=== PATIENT | female | born 1960 | race Caucasian/White ===

== ENCOUNTER 2023-03-28 16:35 | Emergency (ER) | payer SELFPAY ==
--- OUTSIDE RECORDS SUMMARY | 2023-03-28 16:37 | XMS REPORT | Continuity of Care Document ---
:1960 Author Organization [facility] t Address [address] [place] [address] [place] [id number] Care Team Providers Name Role Phone Unavailable Unavailable Unavailable Problems This patient has no known problems. Allergies, Adverse Reactions, Alerts This patient has no known allergies or adverse reactions. Medications This patient has no known medications. Procedures This patient has no known procedures. Encounters Start End Encounter Admission Attending Care Care Encounter Source Date/Time Date/Time Type Type Clinicians Facility Department ID 2022-12-25 2022-12-25 Outpatient [facility] Xintu Shuju [id number] Luke 16:38:26 16:38:26 [id number] F Raciel 2022-09-01 2022-09-01 Outpatient [facility] [id number] Luke 08:29:19 08:29:19 [id number] F Raciel Results This patient has no known results.
[2023-03-28 17:27] LABS: Specific Gravity 1.008 (1.005-1.030); Urine Bacteria 20-50 /HPF (<20); Urine Bilirubin NEGATIVE (Negative); Urine Blood 2+ (Negative); Urine Clarity Turbid (Clear); Urine Color Colorless (Yellow); Urine Glucose NEGATIVE (Negative); Urine Protein TRACE (Negative); Urine RBC 21-50 /HPF (None Seen); Urine Urobilinogen Normal (Normal)
--- NOTE | 2023-03-28 17:37 | ER ---
Nurse's Notes [facility] Name: Suzan Antonio Age: 62 yrs Sex: Female : 1960 Arrival Date: 03/28/2023 Time: 16:35 Bed 9 Private MD: Diagnosis: UTI/ Urinary tract infection, site not specified Presentation: 03/28 16:53 Chief complaint: Patient states: burning upon urination x 5 days with pressure, vg1 frequency, and urgency. States has been taking AZO for five days as well. Coronavirus screen: Vaccine status: Patient reports being unvaccinated. Client denies travel out of the [place] in the last 14 days. Ebola Screen: Patient negative for fever greater than or equal to 101.5 degrees Fahrenheit, and additional compatible Ebola Virus Disease symptoms Patient denies exposure to infectious person. Patient denies travel to an Ebola-affected area in the 21 days before illness onset. Initial Sepsis Screen: Does the patient meet any 2 criteria? No. Patient's initial sepsis screen is negative. Does the patient have a suspected source of infection? No. Patient's initial sepsis screen is negative. Risk Assessment: Do you want to hurt yourself or someone else? Patient reports no desire to harm self or others. Onset of symptoms was March 23, 2023. 16:53 Method Of Arrival: Ambulatory vg1 16:53 Acuity: BETTIE 3 vg1 Triage Assessment: 16:55 General: Appears comfortable, Behavior is calm. Pain: Complains of pain in groin Pain vg1 currently is 0 out of 10 on a pain scale. : Reports burning with urination, urgency, urinary frequency. Historical: - Allergies: 16:55 No Known Allergies; vg1 - Home Meds: 16:55 Vitamins [Active]; vg1 - PMHx: 16:55 None; vg1 - PSHx: 16:55 Tonsillectomy; vg1 - Immunization history:: Client reports having NOT received the Covid vaccine. - Social history:: Smoking status: Patient reports the use of cigarette tobacco products, 4/week. Screenin:00 [facility] ED Fall Risk Assessment (Adult) History of falling in the last 3 months, nj1 including since admission No falls in past 3 months (0 pts) Confusion or Disorientation No (0 pts) Intoxicated or Sedated No (0 pts) Impaired Gait No (0 pts) Mobility Assist Device Used No (0 pt) Altered Elimination No (0 pt) Score/Fall Risk Level 0 - 2 = Low Risk Oriented to surroundings, Maintained a safe environment, Hourly rounding (assess needs \T\ fall precautionary measures) done. 17:00 Abuse screen: Denies threats or abuse. Denies injuries from another. Nutritional nj1 screening: No deficits noted. Tuberculosis screening: No symptoms or risk factors identified. Assessment: 17:00 Reassessment: Patient appears in no apparent distress at this time. Patient is alert, nj1 oriented x 3, equal unlabored respirations, skin warm/dry/pink. General: Appears comfortable, Behavior is calm, cooperative, appropriate for age. : Reports burning with urination, since 6 days ago pain with urination. Vital Signs: 16:53 BP 124 / 88; Pulse 88; Resp 16; Temp 98.6(O); Pulse Ox 100% on R/A; Weight 61.23 kg; vg1 Height 5 ft. 6 in. ; 18:18 BP 137 / 89; Pulse 75; Resp 16; Pulse Ox 100% ; nj1 16:53 Body Mass Index 21.79 (61.23 kg, 167.64 cm) vg1 ED Course: 16:37 Patient arrived in ED. rg4 16:55 Natividad Coates F[facility]-C [facility]. snw 16:55 Primitivo Palma MD is Attending Physician. snw 16:55 Triage completed. vg1 16:55 Arm band placed on. vg1 16:58 Kristen Bledsoe, RN is Primary Nurse. nj1 17:00 Patient has correct armband on for positive identification. Bed in low position. Call [facility] light in reach. 18:18 No provider procedures requiring assistance completed. Patient did not have IV access nj during this emergency room visit. Administered Medications: 18:10 Drug: Rocephin (cefTRIAXone) IM 1 grams Route: IM; Site: right gluteus; nj1 18:20 Follow up: Response: No adverse reaction jl7 Medication: 18:18 VIS not applicable for this client. nj1 Outcome: 17:36 Discharge ordered by . snw 18:18 Discharged to home ambulatory. nj1 18:18 Condition: stable 18:18 Discharge instructions given to patient, Instructed on discharge instructions, follow up and referral plans. medication usage, Demonstrated understanding of instructions, follow-up care, medications, Prescriptions given X 1. 18:52 Patient left the ED. jl7 Signatures: Natividad Coates FNP-C FNP-Heide Ryan4 Lori Green RN RN jl7 Erika Paulino RN RN vg1 Kristen Bledsoe RN RN nj1 Corrections: (The following items were deleted from the chart) 16:56 16:55 PSHx: None; vg1 vg1
--- NOTE | 2023-03-28 17:37 | EDPHYS ---
Physician Documentation [facility] Name: Suzan Antonio Age: 62 yrs Sex: Female : 1960 Arrival Date: 03/28/2023 Time: 16:35 Bed 9 Private MD: ED Physician Primitivo Palma HPI: 03/28 22:05 This 62 yrs old Female presents to ER via Ambulatory with complaints of Urinary Problem.snw 22:05 The patient presents with urinary symptoms, dysuria, frequency, urgency. Onset: The snw symptoms/episode began/occurred suddenly, 6 day(s) ago, and became worse today, and became persistent. Associated signs and symptoms: Pertinent positives: cramping, dysuria, Pertinent negatives: constipation, dyspareunia, fever. Severity of symptoms: At their worst the symptoms were moderate, severe. It is unknown whether or not the patient has had similar symptoms in the past. The patient has not recently seen a physician. Historical: - Allergies: 16:55 No Known Allergies; vg1 - Home Meds: 16:55 Vitamins [Active]; vg1 - PMHx: 16:55 None; vg1 - PSHx: 16:55 Tonsillectomy; vg1 - Immunization history:: Client reports having NOT received the Covid vaccine. - Social history:: Smoking status: Patient reports the use of cigarette tobacco products, 4/week. ROS: 22:04 Constitutional: Negative for fever, chills, and weight loss, Eyes: Negative for injury, snw pain, redness, and discharge, ENT: Negative for injury, pain, and discharge, Neck: Negative for injury, pain, and swelling, Cardiovascular: Negative for chest pain, palpitations, and edema, Respiratory: Negative for shortness of breath, cough, wheezing, and pleuritic chest pain, Abdomen/GI: Negative for abdominal pain, nausea, vomiting, diarrhea, and constipation, Back: Negative for injury and pain, MS/Extremity: Negative for injury and deformity, Skin: Negative for injury, rash, and discoloration, Neuro: Negative for headache, weakness, numbness, tingling, and seizure, Psych: Negative for depression, anxiety, suicide ideation, homicidal ideation, and hallucinations. 22:04 : Positive for urinary symptoms, urinary frequency, burning with urination. Exam: 22:04 Constitutional: This is a well developed, well nourished patient who is awake, alert, snw and in no acute distress. Head/Face: Normocephalic, atraumatic. Eyes: Pupils equal round and reactive to light, extra-ocular motions intact. Lids and lashes normal. Conjunctiva and sclera are non-icteric and not injected. Cornea within normal limits. Periorbital areas with no swelling, redness, or edema. ENT: Nares patent. No nasal discharge, no septal abnormalities noted. Tympanic membranes are normal and external auditory canals are clear. Oropharynx with no redness, swelling, or masses, exudates, or evidence of obstruction, uvula midline. Mucous membranes moist. Neck: Trachea midline, no thyromegaly or masses palpated, and no cervical lymphadenopathy. Supple, full range of motion without nuchal rigidity, or vertebral point tenderness. No Meningismus. Chest/axilla: Normal chest wall appearance and motion. Nontender with no deformity. No lesions are appreciated. Cardiovascular: Regular rate and rhythm with a normal S1 and S2. No gallops, murmurs, or rubs. Normal PMI, no JVD. No pulse deficits. Respiratory: Lungs have equal breath sounds bilaterally, clear to auscultation and percussion. No rales, rhonchi or wheezes noted. No increased work of breathing, no retractions or nasal flaring. Abdomen/GI: Soft, non-tender, with normal bowel sounds. No distension or tympany. No guarding or rebound. No evidence of tenderness throughout. Back: No spinal tenderness. No costovertebral tenderness. Full range of motion. Skin: Warm, dry with normal turgor. Normal color with no rashes, no lesions, and no evidence of cellulitis. MS/ Extremity: Pulses equal, no cyanosis. Neurovascular intact. Full, normal range of motion. Neuro: Awake and alert, GCS 15, oriented to person, place, time, and situation. Cranial nerves II-XII grossly intact. Motor strength 5/5 in all extremities. Sensory grossly intact. Cerebellar exam normal. Normal gait. Psych: Awake, alert, with orientation to person, place and time. Behavior, mood, and affect are within normal limits. Vital Signs: 16:53 BP 124 / 88; Pulse 88; Resp 16; Temp 98.6(O); Pulse Ox 100% on R/A; Weight 61.23 kg; vg1 Height 5 ft. 6 in. ; 18:18 BP 137 / 89; Pulse 75; Resp 16; Pulse Ox 100% ; nj1 16:53 Body Mass Index 21.79 (61.23 kg, 167.64 cm) vg1 MDM: 17:08 Patient medically screened. snw 22:04 Differential diagnosis: viral Infection, bacterial infection, UTI. Data reviewed: vital snw signs, nurses notes, lab test result(s). I considered the following discharge prescriptions or medication management in the emergency department Medications were administered in the Emergency Department. See MAR. Counseling: I had a detailed discussion with the patient and/or guardian regarding: the historical points, exam findings, and any diagnostic results supporting the discharge/admit diagnosis, lab results. Response to treatment: the patient's symptoms have mildly improved after treatment. Special discussion: Based on the patient's Hx, exam, and Dx evaluation, there is no indication for emergent surgery or inpatient Tx. It is understood by the patient/guardian that if the Sx's persist or worsen they need to return immediately for re-evaluation. I have referred the patient to see his PCP for further evaluation of high blood pressure. Based on the history and exam findings, there is no indication for further emergent testing or inpatient evaluation. I discussed with the patient/guardian the need to see the primary care provider for further evaluation of the symptoms. 03/28 16:56 Order name: Urine W/Microscopic (UAM); Complete Time: 17:31 snw 03/28 17:30 Order name: Urine Culture EDMS Administered Medications: 18:10 Drug: Rocephin (cefTRIAXone) IM 1 grams Route: IM; Site: right gluteus; nj1 18:20 Follow up: Response: No adverse reaction jl7 Disposition Summary: 03/28/23 17:36 Discharge Ordered Location: Home snw Condition: Stable snw Diagnosis - UTI/ Urinary tract infection, site not specified snw Followup: snw - With: Emergency Department - When: As needed - Reason: Worsening of condition Followup: snw - With: Private Physician - When: 2 - 3 days - Reason: Recheck today's complaints, Continuance of care, Re-evaluation by your physician Discharge Instructions: - Discharge Summary Sheet snw - Urinary Tract Infection, Adult snw - Rehydration, Adult snw Forms: - Work release form snw - Medication Reconciliation Form snw - Thank You Letter snw - Antibiotic Education snw - Prescription Opioid Use snw Prescriptions: - Bactrim DS 800-160 mg Oral Tablet - take 1 tablet by ORAL route every 12 hours for 10 days; 20 tablet; Refills: 0, snw Product Selection Permitted Signatures: Dispatcher [employer] Natividad Parish, WORM PACKER-C W[employer] P[employer]ER-Csnw Erika Paulino, RN RN vg1 Kristen Bledsoe RN RN nj1 Lori Green RN jl7 Corrections: (The following items were deleted from the chart) 16:56 16:55 PSHx: None; vg1 vg1
[2023-03-28] MEDS ORDERED: CEFTRIAXONE 1000 MG/VIAL ONE (18:04)
[2023-03-28] MEDS ORDERED: LIDOCAINE 1% MPF 5 ML VIAL ONE (18:11)
[2023-03-28 19:04] VITALS: TEMP 98.6; O2SAT 100
[2023-03-28 19:05] VITALS: BP 137/89
== END 2023-03-28 18:52 | disposition home or self-care (01) ==
LOC: ER 16:35
DX: N39.0 Urinary tract infection, site not specified (principal)
CPT/HCPCS: 81001; 87077; 87086; 87088; 87186; 96372; 99284; J0696; J2001